=== PATIENT | male | born 1990 | race Caucasian/White ===

== ENCOUNTER → 2016-12-30 | Outpatient (CLI) | payer OTHER ==
[~2016-12-30] MED LIST: FLOVENT 110MCG7.9 GM; PAXIL CR 12.512.5 MG PO
== END ==
LOC: COL.RAD 12-22 13:30
DX: M24.852 Other specific joint derangements of left hip, not elsewhere classified (principal); M25.852 Other specified joint disorders, left hip; M25.552 Pain in left hip
CPT/HCPCS: A9585; J3301; Q9967